=== PATIENT | male | born 1955 | race Caucasian/White ===

== ENCOUNTER 2019-10-07 07:30 | Day surgery (SDC) | payer BC, SELFPAY ==
[~2019-10-07 07:30] MED LIST: BUPIVACAINE HCL 0.25% 30ML VIAL As Ordered ONE; LIDOCAINE 2% 100MG/5ML SDV (FOR ANES.) As Ordered ONE; MIDAZOLAM INJ 2MG/2ML VIAL (J2250 PER 1MG) As Ordered ONE; fentaNYL 100 MCG/2 ML INJECTION (J3010) As Ordered ONE; propofoL 200 MG/20 ML VIAL As Ordered ONE
[2019-10-07] MEDS ORDERED: ROCURONIUM BROMIDE 50 MG/5 ML VIAL As Ordered ONE (08:02)
[2019-10-07] MEDS ORDERED: fentaNYL 250 MCG/5 ML INJECTION (J3010) As Ordered ONE (08:39)
[2019-10-07] MEDS ORDERED: SUGAMMADEX SODIUM 500 MG/5 ML VIAL (BRIDION) As Ordered ONE (08:48)
[2019-10-07] MEDS ORDERED: KETOROLAC 60MG 2ML VIAL As Ordered ONE (08:49)
[2019-10-07] MEDS ORDERED: ONDANSETRON 4MG/2ML VIAL As Ordered ONE (08:49)
[2019-10-07] MEDS ORDERED: dexameTHASONE 4 MG/ML 1ML VIAL (J1100 PER 1MG) As Ordered ONE (08:49)
[2019-10-07] MEDS ORDERED: ACETAMINOPHEN 1000MG 100ML IV BTL (OFIRMEV) (J0131 PER 10MG) As Ordered ONE (08:51)
[2019-10-24] MEDS ORDERED: ASPI81TA86 PO (15:30)
[2019-10-24] MEDS ORDERED: ATOR1TAB19 PO (15:30)
--- NOTE | 2019-12-08 12:57 | RO ---
DATE OF OPERATION: 10/07/2019 PREOPERATIVE DIAGNOSIS: Right back mass. POSTOPERATIVE DIAGNOSIS: Right subcutaneous back mass consistent with lipoma. PROCEDURE PERFORMED: Excision of right back mass approximately 9 cm in maximum diameter. SURGEON: Mor Li M.D. ANESTHESIA: General. INDICATIONS FOR PROCEDURE: Patient is a 64-year-old man who was seen in the office for a large subcutaneous fleshy mass in the right mid back. He reports that this has been present over perhaps 12 years with a slight increase in size over time. He is not having any discomfort, but the increase in size has made the mass noticeable and he is concerned about its growth. The texture is consistent with a lipoma and he is now for excision of this mass. DESCRIPTION OF PROCEDURE: The patient was moved to the operating room and placed on the table in the supine position. He was placed under general anesthesia. He was rolled into a left lateral decubitus position using the beanbag for support. Pressure points were padded. The right side of the patients back was prepped and draped in a sterile fashion. Inspection revealed a fleshy subcutaneous mass of the lateral mid back approximately 6-7 x 8-9 cm in size. An oblique transverse incision was made directly over the mass using a scalpel. Then using a combination of sharp and cautery dissection, the skin was elevated off of the underlying mass in all directions. There appeared to be a good plane between the skin and subcutaneous tissue and the underlying mass. The dissection was carried to the medial border of the mass and this border was then elevated by further dissection. The mass was found to be sitting directly on some of the muscle of the patients back and the mass was carefully peeled away taking a portion of the muscle fascia, but leaving the muscle fibers intact. In this manner, the mass was undermined from medial to lateral and completely freed and removed. The mass measured 9 cm maximally in diameter. This was sent for permanent pathology. The wound was inspected and hemostasis was ensured with the cautery. When hemostasis was excellent, the subcutaneous tissues were approximated with buried sutures of 3-0 Vicryl. The skin edges were brought into approximation with 3-0 Vicryl sutures and the skin edges were then approximated with a running subcuticular 4-0 Vicryl and Steri-Strips. A bulky bandage was applied. The patient tolerated the procedure well without apparent complication. The patient was awakened in the operating room, extubated, and moved to the recovery room in stable condition. SHELDON
== END 2019-10-07 12:30 | disposition home or self-care (01) ==
LOC: M SDC 07:30
PROVIDERS: ATTEND Surgery
DX: D17.1 Benign lipomatous neoplasm of skin and subcutaneous tissue of trunk (principal); E78.5 Hyperlipidemia, unspecified; Z79.82 Long term (current) use of aspirin; Z79.899 Other long term (current) drug therapy
CPT/HCPCS: 11406; 88307; J0131; J1100; J1885; J2250; J2405; J3010

== ENCOUNTER → 2019-10-20 | Outpatient (CLI) | payer BC ==
[~2019-10-20] MED LIST changes: +ASPI81TA86 PO; +ATOR1TAB19 PO; -BUPIVACAINE HCL 0.25% 30ML VIAL As Ordered ONE; -LIDOCAINE 2% 100MG/5ML SDV (FOR ANES.) As Ordered ONE; -MIDAZOLAM INJ 2MG/2ML VIAL (J2250 PER 1MG) As Ordered ONE; -fentaNYL 100 MCG/2 ML INJECTION (J3010) As Ordered ONE; -propofoL 200 MG/20 ML VIAL As Ordered ONE
== END ==
LOC: M LABSMTC 10:54
PROVIDERS: ATTEND Anesthesiology
DX: Z01.812 Encounter for preprocedural laboratory examination (principal); Z20.828 Contact with and (suspected) exposure to other viral communicable diseases

== ENCOUNTER 2019-10-25 10:59 | Day surgery (SDC) | payer BC ==
[~2019-10-25] VITALS: Ht 160 cm; Wt 73.5 kg
[2019-10-25] MEDS ORDERED: NS 1,000 ML IV ONE (12:15)
[2019-10-25] MEDS ORDERED: LIDOCAINE 2% 100MG/5ML SDV (FOR ANES.) As Ordered ONE (14:31)
[2019-10-25] MEDS ORDERED: propofoL 200 MG/20 ML VIAL As Ordered ONE ×2 (14:31→15:33)
[2019-10-25 16:17] VITALS: BP 133/73
--- NOTE | 2019-11-09 11:30 | ROOR ---
Patient Name: Miguelito Ahumada Procedure Date: 10/25/2019 3:12 PM Date of : 1955 Age: 64 Room: [facility] Gender: Male Note Status: Finalized Procedure: Colonoscopy Indications: Screening for colorectal malignant neoplasm, Last colonoscopy: June 2010 Providers: Mor Li MD Referring MD: Alvin Almeida MD Requesting Provider: Medicines: Monitored Anesthesia Care Complications: No immediate complications. Procedure: Pre-Anesthesia Assessment: - Prior to the procedure, a History and Physical was performed, and patient medications and allergies were reviewed. The patient is competent. The risks and benefits of the procedure and the sedation options and risks were discussed with the patient. All questions were answered and informed consent was obtained. Patient identification and proposed procedure were verified by the physician, the nurse and the alcoholic counselor in the procedure room. Mental Status Examination: alert and oriented. Airway Examination: normal oropharyngeal airway and neck mobility. CV Examination: regular rate and rhythm. Prophylactic Antibiotics: The patient does not require prophylactic antibiotics. Prior Anticoagulants: The patient has taken no previous anticoagulant or antiplatelet agents. ASA Grade Assessment: II - A patient with mild systemic disease. After reviewing the risks and benefits, the patient was deemed in satisfactory condition to undergo the procedure. The anesthesia plan was to use monitored anesthesia care (MAC). Immediately prior to administration of medications, the patient was re-assessed for adequacy to receive sedatives. The heart rate, respiratory rate, oxygen saturations, blood pressure, adequacy of pulmonary ventilation, and response to care were monitored throughout the procedure. The physical status of the patient was re-assessed after the procedure. The Colonoscope was introduced through the anus and advanced to the cecum, identified by appendiceal orifice and ileocecal valve. The colonoscopy was performed without difficulty. The patient tolerated the procedure well. The quality of the bowel preparation was excellent. Findings: Hemorrhoids were found on perianal exam. The colon (entire examined portion) appeared normal. Impression: - Hemorrhoids found on perianal exam. - The entire examined colon is normal. - No specimens collected. Recommendation: - Discharge patient to home. - Resume previous diet. - Continue present medications. - Repeat colonoscopy in 10 years for screening purposes. Mor Li MD Mor Li MD 10/25/2019 3:44:40 PM Electronically signed by Mor Li MD Number of Addenda: 0 Note Initiated On: 10/25/2019 3:12 PM Estimated Blood Loss: Estimated blood loss: none.
== END 2019-10-25 16:18 | disposition home or self-care (01) ==
LOC: M OPP 10:59
PROVIDERS: ATTEND Surgery
DX: Z12.11 Encounter for screening for malignant neoplasm of colon (principal); K64.8 Other hemorrhoids; E78.5 Hyperlipidemia, unspecified; Z79.82 Long term (current) use of aspirin; Z79.899 Other long term (current) drug therapy